=== PATIENT | male | born 1970 | race Asian ===

== ENCOUNTER 2020-02-06 00:21 | Emergency (ER) | payer OTHER ==
[~2020-02-06] VITALS: Ht 162.6 cm; Wt 72.1 kg
[2020-02-06 00:30] VITALS: BP_SYST 149
--- NOTE | 2020-02-06 00:40 | NUR ---
Placed in room 2 . Placed on radiographer cardiac catheterization, blood pressure machine and pulse oximeter. To gown for exam. Side rails up. Report given to BOB DSOUZA.
--- NOTE | 2020-02-06 00:47 | NUR ---
ER at bedside examining patient.
--- NOTE | 2020-02-06 00:50 | NUR ---
PT A&O X4 FROM HOME C/O OF LEFT EYE SWELLING THAT WAS NOTICED AROUND 1130PM YESTERDAY. PT DOES NOT KNOW WHAT MIGHT HAVE CAUSED IT. PT DENIES PAIN. PT DENIES TAKING ANY MEDICATIONS. PT NOTICED BLOOD PRESSURE ELEVATED WHEN AFTER BECOMING NERVOUS ABOUT EYE SWELLING.
[2020-02-06] MEDS ORDERED: DIPHENHYDRAMINE HCL 12.5 MG/5 ML UDC PO ONE (01:00)
--- NOTE | 2020-02-06 01:13 | NUR ---
PT MEDICATED PER MD ORDERS. PT TOLERATED WELL.
[2020-02-06] MEDS ORDERED: DIPHENHYDRAMINE HCL 25 MG CAPSULE PO ONE (01:15)
[2020-02-06 01:30] VITALS: BP_SYST 137
--- NOTE | 2020-02-06 01:30 | NUR ---
Patient given written and verbal discharge instructions and verbalizes understanding. ER MD discussed with patient the results and treatment provided. Patient in stable condition. ID arm band removed. NO Rx given. Patient educated on pain management and to follow up with PMD. Pain Scale 0/10. Opportunity for questions provided and answered. Medication side effect fact sheet provided.
== END 2020-02-06 01:30 | disposition home or self-care (01) ==
LOC: SED 00:21
DX: H57.89 Other specified disorders of eye and adnexa (principal); I10 Essential (primary) hypertension
CPT/HCPCS: 93005; 99283; Q0163